=== PATIENT | male | born 1955 | race Caucasian/White ===

== ENCOUNTER → 2020-11-07 | Emergency (ER) | payer BC ==
[~2020-11-07] VITALS: Ht 177.8 cm; Wt 118.0 kg
[~2020-11-07] MED LIST: CEPH500T PO; DIPH,PERTUSS(ACELL),TET VAC/PF 0.5 ML SYRINGE. VAX IM ONE; HYDR-2155 PO; IV DEXTROSE 5% 50 ML ONE; NEOMY/BACITR/POLYMYXIN OINT PACKET. TP ONE; ONDANSETRON PF 4 MG/2 ML VIAL. IVP ONE; ceFAZolin SODIUM 1 GM VIAL ONE; ceFAZolin SODIUM 2 GM in IV DEXTROSE 5% 50 ML IV ONE
[2020-11-07 12:20] VITALS: BP 140/101
--- NOTE | 2020-11-07 12:32 | PHYS DOC ---
Past History Past Surgical History: No Surgical History (NANI MURPHY APRN) Alcohol Use: Occasionally (NANI MURPHY APRN) General Adult EDM: Chief Complaint: LACERATION/AVULSION HPI: HPI: Patient is a 65-year-old male who presents to the ER for a right thumb injury. Patient reports that he was disconnecting a trailer today when he fell onto his thumb" flipped his thumbnail off". Patient is noted to have a new right thumb avulsion, no nail is present. Patient has fingertip in compromise. Patient rates his pain 10 out of 10. No treatment prior to arrival. Patient's tetanus is not up-to-date. Patient denies any decreased sensation or decreased range of motion to the finger. (NANI MURPHY APRN) Review of Systems: Review of Systems: 14 body systems of the review of systems have been reviewed. See HPI for pertinent positive and negative responses, otherwise all other systems are negative, nonpertinent or noncontributory (NANI MURPHY APRN) Current Medications: Current Meds: Current Medications Medications (Trade) Dose Ordered Sig/Elsa Start Time Stop Time Status Last Admin Dose Admin Fentanyl Citrate (Fentanyl 2ml Vial) 50 mcg 1X ONCE 11/07/20 12:45 11/07/20 12:46 Ondansetron HCl (Zofran) 4 mg 1X ONCE 11/07/20 12:45 11/07/20 12:46 (NANI MURPHY APRN) Allergies: Allergies: Allergies Coded Allergies Type Severity Reaction Last Updated Verified No Known Drug Allergies 11/07/20 No (NANI MURPHY APRN) Physical Exam: PE: Constitutional: Well developed, well nourished, no acute distress, non-toxic appearance. [] HENT: Normocephalic, atraumatic Eyes: PERRLA, EOMI, conjunctiva normal, no discharge. [] Neck: Normal range of motion, no stridor Cardiovascular: Normal peripheral perfusion Lungs & Thorax: Normal work of breathing, no tachypnea Skin: Warm, dry, no erythema, no rash. [] Back: Normal range of motion Extremities: No tenderness, no cyanosis, no clubbing, ROM intact, no edema. Rig ht thumb: Fingertip avulsion, no nail present, nailbed not intact, neuro intact, range of motion intact, active bleeding Neurologic: Alert and oriented X 3, normal motor function, normal sensory function, no focal deficits noted. [] Psychologic: Affect normal, judgement normal, mood normal. [] (NANI MURPHY APRN) Current Patient Data: Vital Signs: Vital Signs Date Time Temp Pulse Resp B/P (MAP) Pulse Ox O2 Delivery O2 Flow Rate FiO2 11/07/20 12:20 98.6 68 15 140/101 98 Room Air (NANI MURPHY APRN) EKG: EKG: [] (NANI MURPHY APRN) Radiology/Procedures: Radiology/Procedures: PROCEDURE: FINGER(S) RIGHT XR FINGER(S)_RIGHT 2+VIEWS History: Finger avulsion. Comparison: None. Technique: AP right hand. 2 coned-down views of the right thumb. Findings: Osseous mineralization is normal. There is a amputation of the distal tuft of the thumb and adjacent soft tissues. Large bandage over the. Degenerative changes throughout the interphalangeal joints with a few suggestions of central erosions and overhanging osteophytes. Impression: 1. Amputation of the thumb distal phalangeal distal tuft and adjacent soft tissues. 2. 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 Electronically signed by: Alcides Contreras MD (11/07/2020 12:37 PM) [id number] DICTATED AND SIGNED BY: ALCIDES CONTRERAS MD DATE: 11/07/20 1235 CC: EMERGENCY,DEPARTMENT; NANI MURPHY APRN; PCP,UNKNOWN ~MTH0 0 [] (NANI MURPHY APRN) Heart Score: C/O Chest Pain: No Risk Factors: Risk Factors: DM, Current or recent (<one month) smoker, HTN, HLP, family history of CAD, obesity. Risk Scores: Score 0 - 3: 2.5% MACE over next 6 weeks - Discharge Home Score 4 - 6: 20.3% MACE over next 6 weeks - Admit for Clinical Observation Score 7 - 10: 72.7% MACE over next 6 weeks - Early Invasive Strategies (NANI MURPHY APRN) Course & Med Decision Making: Course & Med Decision Making Pertinent Labs and Imaging studies reviewed. (See chart for details) Patient is complaining of right thumb injury. Patient is noted to have a fe brile general, no nail present, nailbed avulsion. An x-ray was performed to rule out a fracture. X-ray showed amputation of thumb distal phalangeal tuft and adjacent soft tissues. Patient's tetanus is updated. Patient treated for pain in the ER. I attempted to call [facility] determined he had plastic surgery coverage which they did not. 1345: I contacted [facility] regarding patient's follow-up/transfer with hand surgeon pending currently waiting for response this time. 1514: I spoke with at [facility] plastic surgery group and he advised me to clean the wound with saline, apply petroleum jelly or triple antibiotic ointment, apply Xeroform dressing with gauze and have patient follow-up with him in the clinic early next week. Patient will be given supplies to change the dressing at home and he was given education on how to perform dressing changes. Patient's tetanus updated. Patient given an antibiotic in the ER. Patient discharged home with antibiotic. Patient also discharged home with pain medication. Patient given education on what to watch for including worsening of condition. I discussed with patient all findings and diagnostic testing as well as the need to follow-up with PCP for further evaluation and treatment or return to the ER if any new or worsening symptoms. Strict return precautions were also discussed at length. Patient voiced understanding and agreement with the plan. Patient is hemodynamically stable at the time of disposition. (NANI MURPHY APRN) Dragon Disclaimer: Dragon Disclaimer: This electronic medical record was generated, in whole or in part, using a voice recognition dictation system. (NANI MURPHY APRN) Attending Co-Sign The patient was seen and interviewed as well as examined at the bedside. The chart was reviewed. The case was discussed. Agree with the plan of care. (ALEE WHITE DO) Departure Departure: Impression: Primary Impression: Finger amputation, traumatic Qualified Codes: S68.119A - Complete traumatic metacarpophalangeal amputation of unspecified finger, initial encounter Disposition: HOME / SELF CARE / HOMELESS Condition: GOOD Referrals: PCP,UNKNOWN (PCP) Patient Instructions: Fingertip Injuries and Amputations Additional Instructions: You are seen in the ER for depression rotation of your right thumb. Your tetanus was updated and you were given pain control in the ER. Your finger was cleansed with saline wash and a petroleum dressing was placed. You were given a dose of IV antibiotics in the ER. You will be discharged home with pain medication and an antibiotic. Please make sure that you start and finish the antibiotic completely. Please continue to change the dressing as needed but change the dressing at least daily. When you are changing your dressing please apply Vaseline or bacitracin followed by the Xeroform dressing, gauze, and Coban. I spoke with at [facility] plastic surgery and he would like to see you in his office early next week. Please call [phone] when you are discharged from the ER to make an appointment. Monitor for any signs of infection including redness, warmth, swelling, drainage. If you develop any of the signs of infection, worsening of your pain, decreased sensation to your finger, fevers please return to the ER immediately. EMERGENCY DEPARTMENT GENERAL DISCHARGE INSTRUCTIONS Thank you for coming to [facility] (ED) today and trusting us with you care. We trust that you had a positivie experience in our Emergency Department. If you wish to speak to the department management, you may call the director at [phone]. YOUR FOLLOW UP INSTRUCTIONS ARE FOLLOWS: 1. Do you have a private Doctor? If you do not have a private doctor, please ask for a resource list of physicians or clinics that may be able to assist you with follow up care. 2. The Emergency Physician has interpreted your x-rays. The X-Ray specialist will also review them. If there is a change in the findings, you will be notified in 48 hours when at all possible. 3. A lab test or culture has been done, your results will be reviewed and you will be notified if you need a change in treatment. ADDITIONAL INSTRUCTIONS AND INFORMATION: 1. Your care today has been supervised by a physician who is specially trained in emergency care. Many problems require more than one evaluation for a complete diagnosis and treatment. We recommend that you schedule your follow up appointment as recommended to ensure complete treatment of you illness or injury. If you are unable to obtain follow up care and continue to have a problem, or if your condition worsens, we recommend that you return to the ED. 2. We are not able to safely determine your condition over the phone nor are we able to give sound medical advice over the phone. For these safety reasons, if you call for medical advice we will ask you to come to the ED for further evaluation. 3. If you have any questions regarding these discharge instructions please call the ED at [phone]. SAFETY INFORMATION: In the interest of safety, wellness, and injury prevention; we encourage you to wear your sealbelt, if you smoke; quite smoking, and we encourage family to use a protective helmet for bicycling and other sporting events that present an increased risk for head injury. IF YOUR SYMPTOMS WORSEN OR NEW SYMPTOMS DEVELOP, OR YOU HAVE CONCERNS ABOUT YOUR CONDITION; OR IF YOUR CONDITION WORSENS WHILE YOU ARE WAITING FOR YOUR FOLLOW UP APPOINTMENT; EITHER CONTACT YOUR PRIMARY CARE DOCTOR, THE PHYSICIAN WHOSE NAME AND NUMBER YOU WERE GIVEN, OR RETURN TO THE ED IMMEDIATELY. Scripts Cephalexin (CEPHALEXIN) 500 Mg Tablet 1 TAB PO QID for infection for 7 Days, #28 TAB 0 Refills Prov: NANI MURPHY APRN 11/07/20 Hydrocodone Bit/Acetaminophen (HYDROCODONE-APAP 5-325 ) 1 Each Tablet 1 TAB PO PRN Q6HRS PRN for PAIN for 4 Days, #16 TAB 0 Refills Prov: NANI MURPHY APRN 11/07/20 NANI MURPHY APRN Nov 07, 2020 12:32 ALEE WHITE DO Nov 08, 2020 07:07
--- NOTE | 2020-11-07 12:40 | RAD ---
XR FINGER(S)_RIGHT 2+VIEWS History: Finger avulsion. Comparison: None. Technique: AP right hand. 2 coned-down views of the right thumb. Findings: Osseous mineralization is normal. There is a amputation of the distal tuft of the thumb and adjacent soft tissues. Large bandage over the. Degenerative changes throughout the interphalangeal joints with a few suggestions of central erosions and overhanging osteophytes. Impression: 1. Amputation of the thumb distal phalangeal distal tuft and adjacent soft tissues. 2. 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 Electronically signed by: Alcides Contreras MD (11/07/2020 12:37 PM) [id number]
== END ==
LOC: ER 11:48
DX: S68.011A Complete traumatic metacarpophalangeal amputation of right thumb, initial encounter (principal); W20.8XXA Other cause of strike by thrown, projected or falling object, initial encounter; Y93.89 Activity, other specified; Y92.89 Other specified places as the place of occurrence of the external cause; Y99.8 Other external cause status
CPT/HCPCS: 73140; 96374; 96375; 96376; 99284; J2405; J3010

== ENCOUNTER 2021-06-16 10:26 | Emergency (ER) | payer BC ==
[~2021-06-16] VITALS: Ht 180.3 cm; Wt 125.9 kg
[~2021-06-16 10:26] MED LIST changes: -DIPH,PERTUSS(ACELL),TET VAC/PF 0.5 ML SYRINGE. VAX IM ONE; -IV DEXTROSE 5% 50 ML ONE; -NEOMY/BACITR/POLYMYXIN OINT PACKET. TP ONE; -ONDANSETRON PF 4 MG/2 ML VIAL. IVP ONE; -ceFAZolin SODIUM 1 GM VIAL ONE; -ceFAZolin SODIUM 2 GM in IV DEXTROSE 5% 50 ML IV ONE
[2021-06-16 10:36] VITALS: BP 140/101
--- NOTE | 2021-06-16 10:36 | PHYS DOC ---
Past History Past Medical History: Cancer Past Surgical History: No Surgical History Alcohol Use: Occasionally General Adult EDM: Chief Complaint: SUTURE/STAPLE REMOVAL HPI: HPI: Patient is a 66-year-old male who arrives ambulatory to the emergency department seeking suture removal. Patient reportedly had a skin cancer excised from his face 2 weeks previously at a cancer [place] in [place]. Patient was instructed that the sutures could come out and he is seeking removal. Patient states he has been utilizing antibiotic ointment as well as peroxide to keep the wound clean. He denies complications otherwise. He is awake, alert and nontoxic- appearing. Review of Systems: Review of Systems: Constitutional: Denies fever or chills Eyes: Denies change in visual acuity HENT: Denies nasal congestion or sore throat Respiratory: Denies cough or shortness of breath Cardiovascular: Denies chest pain or edema GI: Denies abdominal pain, nausea, vomiting, bloody stools or diarrhea : Denies dysuria Musculoskeletal: Denies back pain or joint pain Integument: Reports recent cancer with excision. Denies rash Neurologic: Denies headache, focal weakness or sensory changes Endocrine: Denies polyuria or polydipsia Lymphatic: Denies swollen glands Psychiatric: Denies depression or anxiety Allergies: Allergies: Allergies Coded Allergies Type Severity Reaction Last Updated Verified No Known Drug Allergies 11/07/20 No Physical Exam: PE: Constitutional: Well developed, well nourished, no acute distress, non-toxic appearance. [] HENT: Normocephalic, atraumatic, bilateral external ears normal, oropharynx moist, no oral exudates, nose normal. [] Eyes: PERRLA, EOMI, conjunctiva normal, no discharge. [] Neck: Normal range of motion, no tenderness, supple, no stridor. [] Cardiovascular:Heart rate regular rhythm, no murmur [] Lungs & Thorax: Bilateral breath sounds clear to auscultation [] Abdomen: Bowel sounds normal, soft, no tenderness, no masses, no pulsatile masses. [] Skin: Patient has sutures in place for a recent surgical incision. The sutures are clean, dry and intact. There is no surrounding erythema or drainage present. Warm, dry, no erythema, no rash. [] Back: No tenderness, no CVA tenderness. [] Extremities: No tenderness, no cyanosis, no clubbing, ROM intact, no edema. [] Neurologic: Alert and oriented X 3, normal motor function, normal sensory function, no focal deficits noted. [] Psychologic: Affect normal, judgement normal, mood normal. [] Current Patient Data: Vital Signs: Vital Signs Date Time Temp Pulse Resp B/P (MAP) Pulse Ox O2 Delivery O2 Flow Rate FiO2 06/16/21 10:36 97.5 64 16 140/101 (114) 97 Room Air Vital Signs Date Time Temp Pulse Resp B/P (MAP) Pulse Ox O2 Delivery O2 Flow Rate FiO2 06/16/21 10:36 97.5 64 16 140/101 (114) 97 Room Air EKG: EKG: [] Radiology/Procedures: Radiology/Procedures: [] Heart Score: C/O Chest Pain: No Risk Factors: Risk Factors: DM, Current or recent (<one month) smoker, HTN, HLP, family history of CAD, obesity. Risk Scores: Score 0 - 3: 2.5% MACE over next 6 weeks - Discharge Home Score 4 - 6: 20.3% MACE over next 6 weeks - Admit for Clinical Observation Score 7 - 10: 72.7% MACE over next 6 weeks - Early Invasive Strategies Course & Med Decision Making: Course & Med Decision Making Pertinent Labs and Imaging studies reviewed. (See chart for details) [] Dragon Disclaimer: Sheila Disclaimer: This electronic medical record was generated, in whole or in part, using a voice recognition dictation system. Suture/Staple Removal Patient was in the seated position and had one running suture removed from his face. This was performed by nursing staff. The patient tolerated the procedure very well. Departure Departure: Impression: Primary Impression: Visit for suture removal Disposition: HOME / SELF CARE / HOMELESS Condition: STABLE Referrals: PCP,NO (PCP) Patient Instructions: Suture Removal SARABJIT QUEVEDO DO Jun 16, 2021 10:36
== END 2021-06-16 10:53 | disposition home or self-care (01) ==
LOC: ER 10:26
DX: Z48.01 Encounter for change or removal of surgical wound dressing (principal); Z85.9 Personal history of malignant neoplasm, unspecified
CPT/HCPCS: 99281